=== PATIENT | female | born 1945 | race Caucasian/White ===

== ENCOUNTER 2017-09-21 11:57 | Day surgery (SDC) | payer MEDICARE, OTHER ==
[2017-09-21] MEDS ORDERED: Lactated Ringers 1,000 ML IV SCH (12:00)
[2017-09-21] MEDS ORDERED: Sodium Chloride 0.9% 5 ML Syringe FLUSH PRN (12:00)
[2017-09-21] MEDS: Cyclopentolate 1% Opth Soln 2 ML Bottle EYELF SCH ×3 (12:23→12:54)
[2017-09-21] MEDS: Phenylephrine 10% Ophth Soln 5 ML Bot EYELF SCH ×3 (12:28→12:59)
[2017-09-21] MEDS ORDERED: Tobramycin 0.3% Ophth Drops 5 ML Bottle EYELF SCH (12:30)
[2017-09-21] MEDS ORDERED: Balanced Salt Solution Ophth Irrig 15 ML Bottle EYELF ONE (13:22)
[2017-09-21] MEDS ORDERED: Water For Irrigation,Sterile 1,500 ML Container IRR ONE (13:22)
[2017-09-21] MEDS ORDERED: Balanced Salt Solution Plus Ophth Irrig 500 ML Bottle IOCULAR ONE (13:22)
[2017-09-21] MEDS ORDERED: Carbachol 0.01% Intraocular 1.5 ML Vial EYELF ONE (13:22)
[2017-09-21] MEDS ORDERED: EPINEPHrine 1 MG/ML SDV ONE (13:23)
[2017-09-21] MEDS ORDERED: Lidocaine 2% with EPINEPHrine 1:100,000 20 ML MDV INJECT ONE (13:23)
[2017-09-21] MEDS ORDERED: Dexamethasone/Neomycin/Polymyxin B Ophth Oint 3.5 GM Tube EYELF ONE (13:23)
[2017-09-21] MEDS ORDERED: Hyaluronate Sodium 1% 0.85 ML Syringe IOCULAR ONE (13:24)
[2017-09-21] MEDS ORDERED: Tetracaine HCl/PF 0.5% 4 ML Bottle EYEBOTH ONE (13:24)
[2017-09-21] MEDS ORDERED: Lidocaine 1% 10 ML MDV INJECT ONE (13:24)
--- NOTE | 2017-09-22 09:03 | OR ---
DATE OF SURGERY: 09/21/2017 SURGEON: Yoel Sharma MD PREOPERATIVE DIAGNOSIS: Cataract, left eye. POSTOPERATIVE DIAGNOSIS: Cataract, left eye. OPERATION PERFORMED: Phacoemulsification with posterior chamber lens insertion, left eye. HISTORY: The patient presents at this time with an increasing amount of difficulty seeing with the left eye, particularly at night. The current level of vision for the left eye is 20/150 -1. The left lens has a 3+ nuclear sclerosis along with a 3+ posterior subcapsular cataract finding and there are 3+ vacuoles. 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 FINDINGS: The patient was taken to the operating room where appropriate anesthesia, sedation and monitoring were provided. A retrobulbar block was given on the left side. The eye was massaged and was found to be appropriately soft. The eye and eyelids were then prepped and draped in the usual sterile manner. A lid speculum was placed. A micro sharp blade was used to enter the anterior chamber inside the limbus inferior-temporally. Xylocaine was irrigated into the eye at this site. Healon was irrigated into the eye through this site. Then using a 2.85 mm corneal blade an entry was made into the anterior chamber just inside the limbus temporally. Healon was again irrigated into the eye. Then using a cystitome, the anterior capsulorrhexis was created. The lens nucleus was hydrodissected using a 27 gauge cannula and balanced salt solution. The phacoemulsification unit was introduced through the temporal site and the Herb spatula through the inferior temporal site. In so doing, the lens nucleus was phacoemulsified. The cortical fragments of the lens were removed using the irrigation aspiration unit. The posterior capsule was polished. Healon was irrigated into the eye. The posterior chamber lens was inserted and rotated into position inside the capsular bag. The Healon was irrigated out of the eye. Miostat was irrigated into the eye and the pupil rounded nicely. A single interrupted 10-0 Nylon suture was placed through the temporal corneal incision site. Balanced salt solution was irrigated into the eye. The wound was tested and found to be tight. Maxitrol ointment was placed into the patient's left eye. The eyelids were closed and an eye patch and garcia shield were placed. The patient left the operating room in good condition. /[id number]/MODL
== END 2017-09-21 14:20 | disposition home or self-care (01) ==
LOC: KA.SDS 11:57
PROVIDERS: ATTEND Ophthalmology
DX: H26.9 Unspecified cataract (principal); K29.50 Unspecified chronic gastritis without bleeding; E78.5 Hyperlipidemia, unspecified; R07.9 Chest pain, unspecified; J43.9 Emphysema, unspecified; E55.9 Vitamin D deficiency, unspecified; Z79.51 Long term (current) use of inhaled steroids; Z79.899 Other long term (current) drug therapy; Z88.1 Allergy status to other antibiotic agents; Z88.5 Allergy status to narcotic agent; Z88.6 Allergy status to analgesic agent
CPT/HCPCS: 00142; A9270-GY; C1780; J0171; J7120

== ENCOUNTER 2018-11-25 11:07 | Inpatient (IN) | payer MEDICARE, OTHER ==
[2018-11-25] MEDS ORDERED: Codeine/guaiFENesin 100-10 MG/5 ML Syrup 5 ML Cup PO PRN (11:36)
[2018-11-25] MEDS: Albuterol/Ipratropium 3.0-0.5 MG/3 ML Neb Soln NEB SCH ×2 (12:57→17:14)
[2018-11-25] MEDS: Sodium Chloride 0.9% 10 ML Syringe FLUSH PRN ×2 (12:58→20:39)
[2018-11-25] MEDS: cefTRIAXone 1 GM Vial IVPUSH SCH (12:58)
[2018-11-25] MEDS ORDERED: guaiFENesin/Dextromethorphan 100-10 MG/5 ML Soln 5 ML Cup PO PRN (14:59)
[2018-11-25] MEDS ORDERED: Ondansetron 4 MG Tab.DIS PO PRN (15:02)
[2018-11-25] MEDS ORDERED: Calcium Carbonate 500 MG Tab.Chew PO PRN (15:02)
[2018-11-25] MEDS ORDERED: oxyCODONE 5 MG Tab PO PRN (15:02)
[2018-11-25] MEDS: Acetaminophen 500 MG Tab PO PRN (16:43)
[2018-11-25] MEDS: Omeprazole 20 MG Cap.CR PO SCH (17:14)
[2018-11-25] MEDS ORDERED: Acetaminophen 500 MG Tab PO SCH (18:00)
[2018-11-25] MEDS: Azithromycin 500 MG in Sodium Chloride 0.9% 250 ML IV SCH (20:18)
[2018-11-25] MEDS: Apixaban 5 MG Tab PO SCH (20:19)
[2018-11-25] MEDS ORDERED: Sodium Chloride 0.9% 50 ML IV SCH (20:30)
[2018-11-25] MEDS: BIOFREEZE TOP SCH (20:40)
[2018-11-26] MEDS: Albuterol/Ipratropium 3.0-0.5 MG/3 ML Neb Soln NEB SCH ×5 (00:41→17:53)
[2018-11-26] MEDS: Acetaminophen 500 MG Tab PO PRN ×3 (01:42→21:06)
[2018-11-26] MEDS: Omeprazole 20 MG Cap.CR PO SCH ×2 (08:10→17:53)
[2018-11-26 08:54] LABS: ANION GAP 11.7 mmol/L (5-15); CHLORIDE,CL 107 mmol/L (98-115); SODIUM,NA 142 mmol/L (136-145)
[2018-11-26] MEDS ORDERED: Non-Formulary Medication 1 Each (Apixaban [Eliquis] 2.5 MG) PO SCH (09:00)
[2018-11-26] MEDS: Polyethylene Glycol 3350 Powder 17 GM Packet PO SCH (09:53)
[2018-11-26] MEDS: atorvaSTATin 10 MG Tab PO SCH (09:54)
[2018-11-26] MEDS: Apixaban 5 MG Tab PO SCH ×2 (09:54→21:02)
[2018-11-26] MEDS: Cholecalciferol (Vitamin D3) 25 MCG Tab PO SCH (09:54)
--- NOTE | 2018-11-26 12:54 | PCM.PN ---
- General Info Date of Service: 11/26/18 Functional Status: Reports: Pain Controlled, Tolerating Diet, Ambulating, Urinating, Incentive Spirometry (up to 1000 every 2 hours). Denies: New Symptoms - Review of Systems General: Reports: Weakness, Fatigue, Malaise. Denies: Fever, Chills HEENT: Reports: Glasses. Denies: Headaches Pulmonary: Reports: Cough, Sputum. Denies: Shortness of Breath Cardiovascular: Reports: Dyspnea on Exertion. Denies: Chest Pain, Edema Gastrointestinal: Denies: Abdominal Pain, Constipation, Diarrhea Genitourinary: Reports: No Symptoms Musculoskeletal: Reports: Other (right hip pain only with certain movements) Skin: Reports: Other (incision to right hip-covered) Neurological: Denies: Dizziness, Headache Psychiatric: Reports: No Symptoms - Patient Data Vitals - Most Recent: Last Vital Signs Temp 98.3 F 11/26/18 05:47 Pulse 77 11/26/18 05:47 Resp 20 11/26/18 05:47 BP 125/65 11/26/18 05:47 Pulse Ox 93 L 11/26/18 05:47 Weight - Most Recent: 174 lb 8 oz I&O - Last 24 Hours: Intake & Output 11/25/18 11/26/18 11/26/18 22:59 06:59 14:59 Intake Total 350 480 Balance 350 480 Lab Results Last 24 Hours: Laboratory Results - last 24 hr 11/26/18 11/26/18 Range/Units 07:52 07:52 WBC 7.29 (5.00-10.00) 10^3/uL RBC 3.21 L (3.80-5.50) 10^6/uL Hgb 9.5 L (12.0-16.0) g/dL Hct 28.9 L (37.0-47.0) % MCV 90.0 (82.0-92.0) fL MCH 29.6 (27.0-31.0) pg MCHC 32.9 (32.0-36.0) g/dL RDW 14.1 (11.5-14.5) % Plt Count 306 (150-400) 10^3/uL MPV 9.1 (7.4-10.4) fL Immature Gran % (Auto) 2.9 (0.0-5.0) % Neut % (Auto) 73.8 H (50.0-70.0) % Lymph % (Auto) 13.0 L (20.0-40.0) % [place] % (Auto) 7.8 (2.0-8.0) % Eos % (Auto) 2.2 (1.0-3.0) % Baso % (Auto) 0.3 (0.0-1.0) % Immature Gran # (Auto) 0.21 (0.00-0.50) 10^3/uL Neut # (Auto) 5.38 (2.50-7.00) 10^3/uL Lymph # (Auto) 0.95 L (1.00-4.00) 10^3/uL [place] # (Auto) 0.57 (0.10-0.80) 10^3/uL Eos # (Auto) 0.16 (0.10-0.30) 10^3/uL Baso # (Auto) 0.02 (0.00-0.10) 10^3/uL Sodium 142 (136-145) mmol/L Potassium 3.7 (3.3-5.3) mmol/L Chloride 107 (98-115) mmol/L Carbon Dioxide 27.0 (21.0-32.0) mmol/L Anion Gap 11.7 (5-15) mmol/L BUN 9 (6-25) mg/dL Creatinine 0.63 (0.51-1.17) mg/dL Est Cr Clr Drug Dosing 64.81 mL/min Estimated GFR (MDRD) > 60 mL/min Glucose 102 H (75 - 99) mg/dL Calcium 8.2 L (8.7-10.3) mg/dL Total Bilirubin 0.3 (0.2-1.0) mg/dL AST 16 (15-37) U/L ALT 22 (12-78) U/L Alkaline Phosphatase 57 (46-116) IU/L Total Protein 5.7 L (6.4-8.2) g/dL Albumin 2.23 L (3.00-4.80) g/dL Med Orders - Current: Current Medications Acetaminophen (Tylenol Extra Strength) 1,000 mg PO Q6H PRN PRN Reason: Pain Last Admin: 11/26/18 01:42 Dose: 1,000 mg Albuterol/Ipratropium (Duoneb 3.0-0.5 Mg/3 Ml) 3 ml NEB Q6H [facility] Last Admin: 11/26/18 05:32 Dose: 3 ml Apixaban (Eliquis) 2.5 mg PO BID [facility] Last Admin: 11/26/18 09:54 Dose: 2.5 mg Atorvastatin Calcium (Lipitor) 10 mg PO DAILY [facility] Last Admin: 11/26/18 09:54 Dose: 10 mg Calcium Carbonate/Glycine (Tums) 500 mg PO QID PRN PRN Reason: Heartburn Ceftriaxone Sodium (Rocephin) 1 gm IVPUSH Q24H [facility] Last Admin: 11/25/18 12:58 Dose: 1 gm Cholecalciferol (Vitamin D3) 50 mcg PO DAILY [facility] Last Admin: 11/26/18 09:54 Dose: 50 mcg Guaifenesin/Phenylephrine HCl (Robitussin Dm) 5 ml PO Q4H PRN PRN Reason: Cough Last Admin: 11/26/18 01:59 Dose: 5 ml Azithromycin 500 mg/ Sodium (Chloride) 250 mls @ 250 mls/hr IV Q24H [facility] Last Admin: 11/25/18 20:18 Dose: 250 mls/hr Sodium Chloride (Normal Saline) 50 mls @ 50 mls/hr IV ASDIRECTED [facility] Last Admin: 11/25/18 20:39 Dose: 50 mls/hr Omeprazole (Omeprazole) 20 mg PO BIDAC [facility] Last Admin: 11/26/18 08:10 Dose: 20 mg Ondansetron HCl (Zofran Odt) 4 mg PO Q6H PRN PRN Reason: Nausea Oxycodone HCl (Oxycodone) 5 mg PO Q4H PRN PRN Reason: Pain Ptom Biofreeze 1 each TOP BEDTIME [facility] Last Admin: 11/25/18 20:40 Dose: 1 each Ptom Umeclidinium [place] 62.5 Mcg 30 Puff Inhaler 0 each INH DAILY@1200 [facility] Polyethylene Glycol (Miralax) 17 gm PO DAILY [facility] Last Admin: 11/26/18 09:53 Dose: 17 gm Senna/Docusate Sodium (Senna Plus) 1 tab PO BID [facility] Last Admin: 11/26/18 09:53 Dose: 1 tab Sodium Chloride (Saline Flush) 10 ml FLUSH Q8HR PRN PRN Reason: keep vein open Last Admin: 11/25/18 20:39 Dose: 10 ml Discontinued Medications Acetaminophen (Tylenol Extra Strength) 1,000 mg PO Q6H [facility] Guaifenesin/Codeine Phosphate (Robitussin Ac) 5 - 10 ml PO Q6H PRN PRN Reason: Cough Non-Formulary Medication (Apixaban [Eliquis]) 2.5 mg PO DAILY [facility] - Exam Quality Assessment: Supplemental Oxygen (2 liters per nasal cannula 93%), DVT Prophylaxis (on eliquis 2.5 mg BID s/p hip replacement). No: Urine Catheter General: Alert, Oriented, Cooperative, No Acute Distress Lungs: Clear to Auscultation (upper lobes), Normal Respiratory Effort, Crackles (bilateral bases). No: Wheezing Cardiovascular: Regular Rate, Regular Rhythm, No Murmurs GI/Abdominal Exam: Normal Bowel Sounds, Soft, Non-Tender Extremities: No Pedal Edema Skin: Warm, Dry, Intact Wound/Incisions: Healing Well (right lateral hip), Dressing Dry and Intact, No Drainage. No: Erythema Neurological: Normal Speech Psy/Mental Status: Alert, Normal Affect, Normal Mood - Problem List Review Problem List Initiated/Reviewed/Updated: Yes - My Orders Last 24 Hours: My Active Orders 11/25/18 13:55 PROCALCITONIN [REF] Urgent 11/25/18 14:59 Dextromethorphan/guaiFENesin [Robitussin DM] 5 ml PO Q4H PRN 11/25/18 15:02 Calcium Carbonate [Tums] 500 mg PO QID PRN Ondansetron [Zofran ODT] 4 mg PO Q6H PRN oxyCODONE 5 mg PO Q4H PRN 11/25/18 17:30 Omeprazole 20 mg PO BIDAC 11/25/18 19:00 Azithromycin [Zithromax] 500 mg Sodium Chloride 0.9% [Normal Saline] 250 ml IV Q24H 11/25/18 20:30 Sodium Chloride 0.9% [Normal Saline] 50 ml IV ASDIRECTED 11/25/18 21:00 Apixaban [Eliquis] 2.5 mg PO BID Docusate Sodium/Sennosides [Senna Plus] 1 tab PO BID Patient's Own Medication [Ptom] 1 each TOP BEDTIME 11/26/18 09:00 Cholecalciferol (Vitamin D3) [Vitamin D3] 50 mcg PO DAILY Polyethylene Glycol 3350 [MiraLAX] 17 gm PO DAILY atorvaSTATin [Lipitor] 10 mg PO DAILY 11/26/18 12:00 Patient's Own Medication [Ptom] 0 each INH DAILY@1200 11/27/18 05:11 CBC WITH AUTO DIFF [HEME] AM - Plan Plan:: HPI: This is a 73 year old female who presented to the [facility] yesterday with concerns of increasing cough and sputum, low grade fevers, and shortness of breath. She had a right total hip arthroplasty done on 11/16/[address] Martel. Discharged home on 11/18/18. Patient had some issues with nausea/vomiting during her stay with tramadol so this was changed. History notable for COPD and pulmonary nodules. Clinic work-up: -WBC 13.5 with left shift -Hgb 10.8 -CXR: small amount of atelectasis/infiltrate in lung bases (new), no pleural effusions/pulmonary edema. Primary assessment/plan: Bilateral lower lobe pneumonia, CAP, POA. WBC 7.29 with left shift. Procalcitonin, BC x 2, sputum pending. Continue IV rocephin and azithromycin. Continue DuoNebs and IS. Wean off oxygen today. CBC in AM. COPD exacerbation, improving. No wheezing, so no steroids required at this time. Hold Advair. Continue umeclidinium bromide daily. Anemia, likely acute blood loss. Hgb 9.5. Anemia work-up pending. Secondary assessment/plan: S/P right total hip arthroplasty. Incision appears dry and intact. Keep covered with telfa and change daily and PRN. Continue with oxycodone 4 mg every 6 hours PRN and tylenol 1000 mg every 6 hours PRN (no more than 3 gm/day of tylenol from all sources). Denies issues with constipation; is taking Senna-S 1 tab BID and Miralax 17 gm daily. Continue with eliquis. Pulmonary nodules. CT chest (2017) noted several stable pulmonary nodules bilaterally; recommended repeat CT in 2 years to confirm stability. Due in 2018. HLD. Continue lipitor. LDL 79 (09/2018). Obesity. Benign neoplasm of colon. Postmenopausal. Continue calcium/vitamin D supplementation. History of vaginal cancer. Primary osteoarthritis of left hip. Low back pain. GERD. Continue omeprazole 20 mg BID. DVT prophylaxis. On eliquis. Overall plan: Continue with IV antibiotics for a total of 3 days prior to discharging home on orals. Continue with nebulizers and IS. Wean off oxygen.
[2018-11-26] MEDS: Sodium Chloride 0.9% 10 ML Syringe FLUSH PRN ×2 (13:41→18:36)
[2018-11-26] MEDS: UMECLIDINIUM BROMIDE 62.5 MCG INH SCH (13:41)
[2018-11-26] MEDS: cefTRIAXone 1 GM Vial IVPUSH SCH (13:41)
[2018-11-26] MEDS: Azithromycin 500 MG in Sodium Chloride 0.9% 250 ML IV SCH (18:36)
[2018-11-26] MEDS: BIOFREEZE TOP SCH (21:02)
[2018-11-27] MEDS: Albuterol/Ipratropium 3.0-0.5 MG/3 ML Neb Soln NEB SCH ×4 (00:13→17:14)
[2018-11-27] MEDS: Omeprazole 20 MG Cap.CR PO SCH ×2 (06:41→17:13)
[2018-11-27] MEDS: Cholecalciferol (Vitamin D3) 25 MCG Tab PO SCH (08:11)
[2018-11-27] MEDS: atorvaSTATin 10 MG Tab PO SCH (08:11)
[2018-11-27] MEDS: Apixaban 5 MG Tab PO SCH ×2 (08:11→21:14)
[2018-11-27] MEDS: Polyethylene Glycol 3350 Powder 17 GM Packet PO SCH (08:12)
[2018-11-27] MEDS: Acetaminophen 500 MG Tab PO PRN ×2 (08:15→21:50)
--- NOTE | 2018-11-27 11:10 | PCM.PN ---
- General Info Date of Service: 11/27/18 Functional Status: Reports: Pain Controlled, Tolerating Diet, Ambulating, Urinating, Incentive Spirometry - Review of Systems General: Denies: Fever, Weakness, Fatigue, Chills HEENT: Reports: Glasses. Denies: Headaches Pulmonary: Reports: Cough, Sputum. Denies: Shortness of Breath Cardiovascular: Reports: Dyspnea on Exertion (improving to baseline). Denies: Chest Pain, Edema Gastrointestinal: Denies: Abdominal Pain, Constipation, Decreased Appetite, Diarrhea Genitourinary: Reports: No Symptoms Musculoskeletal: Reports: Other (right hip pain with certain movements) Neurological: Denies: Dizziness, Headache Psychiatric: Reports: No Symptoms - Patient Data Vitals - Most Recent: Last Vital Signs Temp 98.9 F 11/27/18 06:46 Pulse 77 11/27/18 06:46 Resp 18 11/27/18 06:46 BP 149/80 H 11/27/18 06:46 Pulse Ox 97 11/27/18 06:46 Weight - Most Recent: 174 lb 8 oz I&O - Last 24 Hours: Intake & Output 11/26/18 11/27/18 11/27/18 22:59 06:59 14:59 Intake Total 430 0 Balance 430 0 Lab Results Last 24 Hours: Laboratory Results - last 24 hr 11/26/18 11/27/18 Range/Units 07:52 07:50 WBC 7.69 (5.00-10.00) 10^3/uL RBC 3.40 L (3.80-5.50) 10^6/uL Hgb 10.1 L (12.0-16.0) g/dL Hct 31.2 L (37.0-47.0) % MCV 91.8 (82.0-92.0) fL MCH 29.7 (27.0-31.0) pg MCHC 32.4 (32.0-36.0) g/dL RDW 14.0 (11.5-14.5) % Plt Count 321 (150-400) 10^3/uL MPV 8.8 (7.4-10.4) fL Immature Gran % (Auto) 2.0 (0.0-5.0) % Neut % (Auto) 75.2 H (50.0-70.0) % Lymph % (Auto) 13.7 L (20.0-40.0) % [place] % (Auto) 5.9 (2.0-8.0) % Eos % (Auto) 2.9 (1.0-3.0) % Baso % (Auto) 0.3 (0.0-1.0) % Immature Gran # (Auto) 0.15 (0.00-0.50) 10^3/uL Neut # (Auto) 5.80 (2.50-7.00) 10^3/uL Lymph # (Auto) 1.05 (1.00-4.00) 10^3/uL [place] # (Auto) 0.45 (0.10-0.80) 10^3/uL Eos # (Auto) 0.22 (0.10-0.30) 10^3/uL Baso # (Auto) 0.02 (0.00-0.10) 10^3/uL TSH, Ultra Sensitive 1.400 (0.340-4.820) uIU/mL Moshe Results Last 24 Hours: Microbiology 11/25/18 12:08 Respiratory Culture - Preliminary Sputum - Expectorated Probable Haemophilus Species Gram Stain - Final 11/25/18 12:10 Miscellaneous Reference Culture - Preliminary Wound - Hip, Right Gram Stain - Final 11/25/18 14:30 Aerobic Blood Culture - Preliminary Blood - Arm, Left NO GROWTH AFTER 1 DAY Anaerobic Blood Culture - Preliminary NO GROWTH AFTER 1 DAY 11/25/18 13:55 Aerobic Blood Culture - Preliminary Blood NO GROWTH AFTER 1 DAY Anaerobic Blood Culture - Preliminary NO GROWTH AFTER 1 DAY Med Orders - Current: Current Medications Acetaminophen (Tylenol Extra Strength) 1,000 mg PO Q6H PRN PRN Reason: Pain Last Admin: 11/27/18 08:15 Dose: 1,000 mg Albuterol/Ipratropium (Duoneb 3.0-0.5 Mg/3 Ml) 3 ml NEB Q6H [facility] Last Admin: 11/27/18 06:41 Dose: 3 ml Apixaban (Eliquis) 2.5 mg PO BID [facility] Last Admin: 11/27/18 08:11 Dose: 2.5 mg Atorvastatin Calcium (Lipitor) 10 mg PO DAILY [facility] Last Admin: 11/27/18 08:11 Dose: 10 mg Calcium Carbonate/Glycine (Tums) 500 mg PO QID PRN PRN Reason: Heartburn Ceftriaxone Sodium (Rocephin) 1 gm IVPUSH Q24H [facility] Last Admin: 11/26/18 13:41 Dose: 1 gm Cholecalciferol (Vitamin D3) 50 mcg PO DAILY [facility] Last Admin: 11/27/18 08:11 Dose: 50 mcg Guaifenesin/Phenylephrine HCl (Robitussin Dm) 5 ml PO Q4H PRN PRN Reason: Cough Last Admin: 11/26/18 01:59 Dose: 5 ml Azithromycin 500 mg/ Sodium (Chloride) 250 mls @ 250 mls/hr IV Q24H [facility] Last Admin: 11/26/18 18:36 Dose: 250 mls/hr Sodium Chloride (Normal Saline) 50 mls @ 50 mls/hr IV ASDIRECTED [facility] Last Admin: 11/25/18 20:39 Dose: 50 mls/hr Omeprazole (Omeprazole) 20 mg PO BIDAC [facility] Last Admin: 11/27/18 06:41 Dose: 20 mg Ondansetron HCl (Zofran Odt) 4 mg PO Q6H PRN PRN Reason: Nausea Oxycodone HCl (Oxycodone) 5 mg PO Q4H PRN PRN Reason: Pain Ptom Biofreeze 1 each TOP BEDTIME [facility] Last Admin: 11/26/18 21:02 Dose: 1 each Ptom Umeclidinium [place] 62.5 Mcg 30 Puff Inhaler 0 each INH DAILY@1200 [facility] Last Admin: 11/26/18 13:41 Dose: 1 each Polyethylene Glycol (Miralax) 17 gm PO DAILY [facility] Last Admin: 11/27/18 08:12 Dose: Not Given Senna/Docusate Sodium (Senna Plus) 1 tab PO BID [facility] Last Admin: 11/27/18 08:11 Dose: 1 tab Sodium Chloride (Saline Flush) 10 ml FLUSH Q8HR PRN PRN Reason: keep vein open Last Admin: 11/26/18 18:36 Dose: 10 ml Discontinued Medications Acetaminophen (Tylenol Extra Strength) 1,000 mg PO Q6H [facility] Guaifenesin/Codeine Phosphate (Robitussin Ac) 5 - 10 ml PO Q6H PRN PRN Reason: Cough Non-Formulary Medication (Apixaban [Eliquis]) 2.5 mg PO DAILY [facility] - Exam Quality Assessment: Supplemental Oxygen (1 liter per nasal cannula 93%), DVT Prophylaxis (on eliquis) General: Alert, Oriented, Cooperative, No Acute Distress Lungs: Clear to Auscultation, Normal Respiratory Effort Cardiovascular: Regular Rate, Regular Rhythm, No Murmurs GI/Abdominal Exam: Normal Bowel Sounds, Soft, Non-Tender, No Distention Extremities: No Pedal Edema Skin: Warm, Dry, Intact Wound/Incisions: Dressing Dry and Intact Neurological: Normal Speech Psy/Mental Status: Alert, Normal Affect, Normal Mood - Problem List Review Problem List Initiated/Reviewed/Updated: Yes - My Orders Last 24 Hours: My Active Orders 11/26/18 12:00 Patient's Own Medication [Ptom] 0 each INH DAILY@1200 11/26/18 13:13 FOLATE, RBC [REF] Routine VITAMIN B12 [REF] Routine 11/27/18 07:50 IRON PNL (FE, TIBC, LEONARD, %SAT) [REF] Routine - Plan Plan:: HPI: This is a 73 year old female who presented to the [facility] on 11[facility]25[facility]18 with concerns of increasing cough and sputum, low grade fevers, and shortness of breath. She had a right total hip arthroplasty done on 11/16/[address] Martel. Discharged home on 11/18/18. Patient had some issues with nausea/vomiting during her stay with tramadol so this was changed. History notable for COPD and pulmonary nodules. Clinic work-up: -WBC 13.5 with left shift -Hgb 10.8 -CXR: small amount of atelectasis/infiltrate in lung bases (new), no pleural effusions/pulmonary edema. Primary assessment/plan: Bilateral lower lobe pneumonia-likely Haemophilus species, CAP, POA, improving. WBC 7.69 with left shift. Preliminary BC x 2 showing no growth. Sputum showing gram positive cocci likely Haemophilus species. Continue with IV rocephin and azithromycin. Continue with DuoNebs and IS. Wean off oxygen. Procalcitonin pending. COPD exacerbation, improving. Hold Advair. Continue umeclidinium bromide daily. Anemia, likely acute blood loss, improving. Hgb 10.1. MCV, MCH, RDW wnl. TSH 1.40. Iron/TIBC, folate, and B12 pending. Secondary assessment/plan: S/P right total hip arthroplasty, stable. Wound culture shows no growth. Continue with daily dressing change. Continue oxycodone and tylenol PRN. Continue eliquis. Patient performing PT exercises per self. Pulmonary nodules. CT chest (2016) noted several stable pulmonary nodules bilaterally; recommended repeat CT in 2 years to confirm stability. Due in 2018. HLD. Continue lipitor. LDL 79 (09/2018). Obesity. Benign neoplasm of colon. Postmenopausal. Continue calcium/vitamin D supplementation. History of vaginal cancer. Primary osteoarthritis of left hip. Low back pain. GERD. Continue omeprazole 20 mg BID. DVT prophylaxis. On eliquis. Overall plan: Wean off oxygen today. Has some degree of dyspnea on exertion at baseline related to COPD. Continue IV antibiotics. Pending clinical picture she will likely be able to be discharged home tomorrow.
[2018-11-27] MEDS: UMECLIDINIUM BROMIDE 62.5 MCG INH SCH (11:45)
[2018-11-27] MEDS: cefTRIAXone 1 GM Vial IVPUSH SCH (12:37)
[2018-11-27] MEDS: Sodium Chloride 0.9% 10 ML Syringe FLUSH PRN (12:41)
[2018-11-27] MEDS: Azithromycin 500 MG in Sodium Chloride 0.9% 250 ML IV SCH (18:41)
[2018-11-27] MEDS: BIOFREEZE TOP SCH (21:14)
[2018-11-28] MEDS: Albuterol/Ipratropium 3.0-0.5 MG/3 ML Neb Soln NEB SCH ×2 (02:14→05:47)
[2018-11-28] MEDS: Apixaban 5 MG Tab PO SCH (08:01)
[2018-11-28] MEDS: Omeprazole 20 MG Cap.CR PO SCH (08:02)
[2018-11-28] MEDS: atorvaSTATin 10 MG Tab PO SCH (08:02)
[2018-11-28] MEDS: Cholecalciferol (Vitamin D3) 25 MCG Tab PO SCH (08:02)
[2018-11-28] MEDS: Polyethylene Glycol 3350 Powder 17 GM Packet PO SCH (08:02)
--- NOTE | 2018-11-28 09:14 | PCM.DCSUM1 ---
Discharge Summary - Discharge Data Discharge Date: 11/28/18 Discharge Disposition: Home, Self-Care 01 Condition: Good - Patient Summary/Data Complications: None Consults: None - Patient Instructions Diet: Regular Diet as Tolerated Activity: As Tolerated Driving: Do Not Drive Showering/Bathing: May Shower Wound/Incision Care: Keep Operative Site/Wound Site Clean and Dry Notify Provider of: Fever (shortness of breath, chest pain/tightness, dizziness) , Increased Pain, Swelling and Redness - Discharge Plan *PRESCRIPTION DRUG MONITORING PROGRAM REVIEWED*: Not Applicable *COPY OF PRESCRIPTION DRUG MONITORING REPORT IN PATIENT DEVON: Not Applicable Prescriptions/Med Rec: Albuterol/Ipratropium [DuoNeb 3.0-0.5 MG/3 ML] 3 ml NEB Q6H 4 Days #1 box Amoxicillin/Clavulanate K [Augmentin 875-125 MG] 1 tab PO BID 4 Days #8 tablet Home Medications: Home Meds Albuterol [Proventil HFA] 2 puff INH Q4H PRN 09/17/17 [History] Fluticasone/Salmeterol [Advair 250-50 Diskus] 1 puff PO BID 09/17/17 [History] Omeprazole 20 mg PO BID 09/17/17 [History] Umeclidinium [place] [Incruse Ellipta*] 1 puff PO 1200 09/17/17 [History] atorvaSTATin [Lipitor] 10 mg PO DAILY 09/17/17 [History] Calcium Carbonate 500 mg PO QID PRN 11/25/18 [History] Cholecalciferol (Vitamin D3) [Vitamin D3] 2,000 unit PO DAILY 11/25/18 [History] Docusate Sodium/Sennosides [Senokot-S] 1 tab PO BID 11/25/18 [History] Menthol [Biofreeze] 1 applic TOP BEDTIME 11/25/18 [History] Ondansetron [Zofran ODT] 4 mg PO Q6H PRN 11/25/18 [History] Polyethylene Glycol 3350 [Miralax] 17 gm PO DAILY 11/25/18 [History] oxyCODONE 5 mg PO Q4H PRN 11/25/18 [History] Acetaminophen 1,000 mg PO Q6H #0 11/28/18 [Rx] Albuterol/Ipratropium [DuoNeb 3.0-0.5 MG/3 ML] 3 ml NEB Q6H 4 Days #1 box [Rx] Amoxicillin/Clavulanate K [Augmentin 875-125 MG] 1 tab PO BID 4 Days #8 tablet 11/28/18 [Rx] Apixaban [Eliquis] 2.5 mg PO BID #0 11/28/18 [Rx] Referrals: Nasima Dejesus MD [Primary Care Provider] - 11/30/18 - Discharge Summary/Plan Comment DC Time >30 min.: Yes Discharge Summary/Plan Comment: Date of admission: 11/25/18 Date of discharge: 11/28/18 Admitting diagnosis: Primary: Community acquired pneumonia-RLL, COPD exacerbation Secondary: S/P right total hip arthroplasty, Anemia (likely acute blood loss) , Pulmonary nodules, HLD, Obesity, Benign neoplasm of colon, Postmenopausal, History of vaginal cancer, Primary osteoarthritis of left hip, Low back pain, GERD. Final diagnosis: Primary: Community acquired pneumonia bilateral lower lobe, improving; COPD exacerbation, resolving; Anemia (likely acute blood loss), resolving. Secondary: S/P right total hip arthroplasty, Pulmonary nodules, HLD, Obesity , Benign neoplasm of colon, Postmenopausal, History of vaginal cancer, Primary osteoarthritis of left hip, Low back pain, GERD. Procedures performed: None Brief History: This is a 73 year old female who presented to the [facility] on 11/25/18 with concerns of increasing cough and sputum, low grade fevers, and shortness of breath. She had a right total hip arthroplasty done on 11/16/[address] Martel. Discharged home on 11/18/18. Patient had some issues with nausea/vomiting during her stay with tramadol so this was changed. History notable for COPD and pulmonary nodules. Clinic work-up: -WBC 13.5 with left shift -Hgb 10.8 -CXR: small amount of atelectasis/infiltrate in lung bases (new), no pleural effusions/pulmonary edema. Hospital Course: The patient's hospital course progressed as expected. She remained hemodynamically stable with only low grade fevers up to 100.2 degrees F. She did require 1-2 liters of oxygen per nasal cannula for dyspnea with exertion. She was weaned off of this the day prior to discharge and remained 91% on room air. Preliminary blood cultures x 2 were showing no growth. Sputum culture revealed gram positive cocci likely Haemophilus species. She received IV zithromax 500 mg daily x 3 doses along with ceftriaxone 1 gm IV daily x 3 doses. She was given DuoNebs QID along with incentive spirometry every 2 hours while awake. WBC improved to 7.69. Patient's right hip incision is healing well , no drainage or erythema. Per protocol nursing staff performed a culture on admission, which was negative for growth. Patient continued to do her PT exercises while in the hospital. She is able to move around with her walker per self. Her hemoglobin was noted to be low at 9.5. Anemia work-up ensued with TSH 1.40 and iron/tibc, folate, vitamin b12 pending on discharge. This had improved to 10.1 the day prior to discharge with normal MCV, MCH, & RDW. New medications at discharge: -Augmentin 875 mg po BID x 4 days (total of 7 days of antibiotics) -DuoNebs every 6 hours x 4 days Changes to home medications on discharge: None Regular home medications on discharge: -Incruse Ellipta 1 puff daily at 1200 -Advair 250-50 mcg po BID -Vitamin D3 2000 units po daily -Biofreeze 1 application top at HS -Ondansetron ODT 4 mg every 6 hours PRN -Miralax 17 gm po daily -Senna-S 1 tab po BID -Oxycodone 5 mg every 4 hours PRN -Omeprazole 20 mg po BID -Calcium carbonate 500 mg po QID PRN -Lipitor 10 mg po daily -Eliquis 2.5 mg po BID -Albuterol HFA 2 puffs every 4 hours PRN -Tylenol 1000 mg po every 6 hours Condition, Treatment and Final Disposition: The patient is in stable condition at the time of discharge. She will be discharged home with her caregiver. She will be seen in follow-up at the [facility] on 11/30/[address] Enrrique Dejesus. She has a follow-up appointment with orthopedics in [place] tomorrow (11/29/18). She will be following with [facility] in [place]. - General Info Date of Service: 11/28/18 Functional Status: Reports: Pain Controlled, Tolerating Diet, Ambulating, Urinating, Incentive Spirometry. Denies: New Symptoms - Review of Systems General: Reports: Fever (low grade 100.2 F last night, no symptoms), Weakness ( improved). Denies: Fatigue, Chills HEENT: Denies: Headaches Pulmonary: Reports: Cough, Sputum. Denies: Shortness of Breath Cardiovascular: Reports: Dyspnea on Exertion (improved). Denies: Chest Pain, Edema Gastrointestinal: Denies: Abdominal Pain, Constipation, Decreased Appetite, Diarrhea, Nausea, Vomiting Genitourinary: Reports: No Symptoms Musculoskeletal: Reports: Other (right hip pain with certain movements) Neurological: Denies: Dizziness, Headache Psychiatric: Reports: No Symptoms - Patient Data Vitals - Most Recent: Last Vital Signs Temp 98.5 F 11/28/18 06:50 Pulse 87 11/28/18 06:50 Resp 22 H 11/28/18 06:50 BP 133/60 11/28/18 06:50 Pulse Ox 91 L 11/28/18 06:50 Weight - Most Recent: 174 lb 8 oz I&O - Last 24 hours: Intake & Output 11/27/18 11/28/18 11/28/18 22:59 06:59 14:59 Intake Total 905 0 Balance 905 0 NIRU Results - Last 24 hrs: Microbiology 11/25/18 14:30 Aerobic Blood Culture - Preliminary Blood - Arm, Left NO GROWTH AFTER 2 DAYS Anaerobic Blood Culture - Preliminary NO GROWTH AFTER 2 DAYS 11/25/18 13:55 Aerobic Blood Culture - Preliminary Blood NO GROWTH AFTER 2 DAYS Anaerobic Blood Culture - Preliminary NO GROWTH AFTER 2 DAYS 11/25/18 12:08 Respiratory Culture - Preliminary Sputum - Expectorated Probable Haemophilus Species Gram Stain - Final 11/25/18 12:10 Miscellaneous Reference Culture - Preliminary Wound - Hip, Right Gram Stain - Final Med Orders - Current: Current Medications Acetaminophen (Tylenol Extra Strength) 1,000 mg PO Q6H PRN PRN Reason: Pain Last Admin: 11/27/18 21:50 Dose: 1,000 mg Albuterol/Ipratropium (Duoneb 3.0-0.5 Mg/3 Ml) 3 ml NEB Q6H [facility] Last Admin: 11/28/18 05:47 Dose: 3 ml Apixaban (Eliquis) 2.5 mg PO BID [facility] Last Admin: 11/28/18 08:01 Dose: 2.5 mg Atorvastatin Calcium (Lipitor) 10 mg PO DAILY [facility] Last Admin: 11/28/18 08:02 Dose: 10 mg Calcium Carbonate/Glycine (Tums) 500 mg PO QID PRN PRN Reason: Heartburn Ceftriaxone Sodium (Rocephin) 1 gm IVPUSH Q24H [facility] Last Admin: 11/27/18 12:37 Dose: 1 gm Cholecalciferol (Vitamin D3) 50 mcg PO DAILY [facility] Last Admin: 11/28/18 08:02 Dose: 50 mcg Guaifenesin/Phenylephrine HCl (Robitussin Dm) 5 ml PO Q4H PRN PRN Reason: Cough Last Admin: 11/26/18 01:59 Dose: 5 ml Azithromycin 500 mg/ Sodium (Chloride) 250 mls @ 250 mls/hr IV Q24H [facility] Last Admin: 11/27/18 18:41 Dose: 250 mls/hr Sodium Chloride (Normal Saline) 50 mls @ 50 mls/hr IV ASDIRECTED [facility] Last Admin: 11/25/18 20:39 Dose: 50 mls/hr Omeprazole (Omeprazole) 20 mg PO BIDAC [facility] Last Admin: 11/28/18 08:02 Dose: 20 mg Ondansetron HCl (Zofran Odt) 4 mg PO Q6H PRN PRN Reason: Nausea Oxycodone HCl (Oxycodone) 5 mg PO Q4H PRN PRN Reason: Pain Ptom Biofreeze 1 each TOP BEDTIME [facility] Last Admin: 11/27/18 21:14 Dose: 1 each Ptom Umeclidinium [place] 62.5 Mcg 30 Puff Inhaler 0 each INH DAILY@1200 [facility] Last Admin: 11/27/18 11:45 Dose: 1 each Polyethylene Glycol (Miralax) 17 gm PO DAILY [facility] Last Admin: 11/28/18 08:02 Dose: Not Given Senna/Docusate Sodium (Senna Plus) 1 tab PO BID [facility] Last Admin: 11/28/18 08:02 Dose: 1 tab Sodium Chloride (Saline Flush) 10 ml FLUSH Q8HR PRN PRN Reason: keep vein open Last Admin: 11/27/18 12:41 Dose: 10 ml Discontinued Medications Acetaminophen (Tylenol Extra Strength) 1,000 mg PO Q6H [facility] Guaifenesin/Codeine Phosphate (Robitussin Ac) 5 - 10 ml PO Q6H PRN PRN Reason: Cough Non-Formulary Medication (Apixaban [Eliquis]) 2.5 mg PO DAILY [facility] - Exam Quality Assessment: Reports: DVT Prophylaxis (on eliquis). Denies: Supplemental Oxygen (91% on room air) General: Reports: Alert, Oriented, Cooperative, No Acute Distress Lungs: Reports: Clear to Auscultation, Normal Respiratory Effort Cardiovascular: Reports: Regular Rate, Regular Rhythm, No Murmurs GI/Abdominal Exam: Normal Bowel Sounds, Soft, Non-Tender, No Distention Extremities: No Pedal Edema Skin: Reports: Warm, Dry, Intact Wound/Incisions: Reports: Dressing Dry and Intact, No Drainage. Denies: Erythema Neurological: Reports: Normal Speech Psy/Mental Status: Reports: Alert, Normal Affect, Normal Mood
== END 2018-11-28 10:35 | disposition home or self-care (01) | DRG 195 ==
LOC: KA.MS 11:07
PROVIDERS: ADMIT Family Medicine; ATTEND Family Medicine
DX: J14 Pneumonia due to Hemophilus influenzae (principal); J43.9 Emphysema, unspecified; M16.0 Bilateral primary osteoarthritis of hip; E66.9 Obesity, unspecified; Z68.30 Body mass index [BMI] 30.0-30.9, adult; E78.5 Hyperlipidemia, unspecified; N95.9 Unspecified menopausal and perimenopausal disorder; K21.9 Gastro-esophageal reflux disease without esophagitis; M54.5 Low back pain; D64.9 Anemia, unspecified; Z85.44 Personal history of malignant neoplasm of other female genital organs; Z79.899 Other long term (current) drug therapy; Z79.51 Long term (current) use of inhaled steroids; Z88.1 Allergy status to other antibiotic agents; Z88.8 Allergy status to other drugs, medicaments and biological substances; Z88.5 Allergy status to narcotic agent; Z90.49 Acquired absence of other specified parts of digestive tract; Z98.890 Other specified postprocedural states; Z90.710 Acquired absence of both cervix and uterus; Z87.891 Personal history of nicotine dependence
CPT/HCPCS: 36415; 80053; 82607; 82728; 82747; 83540; 83550; 84145; 84443; 85014; 85025; 87040; 87070; 87077; 87184; 87186; 87205; 94640; A9270-GY; J0456; J0696; J7050; J7620-GY